=== PATIENT | female | born 2000 | race Caucasian/White ===

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

== ENCOUNTER 2022-01-06 22:25 | Emergency (ER) | payer MEDICAID, OTHER ==
[~2022-01-06] VITALS: Ht 165.1 cm; Wt 53.0 kg
[2022-01-06] MEDS ORDERED: NALOXONE HCL 0.4 MG/ML 1ML VIAL IV ONE (22:45)
[2022-01-06] MEDS ORDERED: NALO4SPR BOTHNSTRLS (22:58)
[2022-01-07 01:01] VITALS: BP 122/81
== END 2022-01-07 01:06 | disposition home or self-care (01) ==
LOC: ER 22:25
DX: T40.2X1A Poisoning by other opioids, accidental (unintentional), initial encounter (principal); R11.10 Vomiting, unspecified; F12.10 Cannabis abuse, uncomplicated; F10.10 Alcohol abuse, uncomplicated; Y90.9 Presence of alcohol in blood, level not specified; Y92.018 Other place in single-family (private) house as the place of occurrence of the external cause
CPT/HCPCS: 99283